=== PATIENT | female | born 1980 | race Two or more races ===

== ENCOUNTER 2024-03-07 20:38 | Emergency (ER) | payer OTHER ==
[~2024-03-07] VITALS: Ht 149.9 cm; Wt 63.0 kg
[2024-03-07] MEDS ORDERED: ACETAMINOPHEN 500 MG TABLET ONE (22:30)
[2024-03-07] MEDS ORDERED: LORAZEPAM 1 MG TABLET ONE (22:30)
[2024-03-07] MEDS: LORAZEPAM 0.5 MG TABLET PO ONE (22:33)
[2024-03-07] MEDS: ACETAMINOPHEN 500 MG TABLET PO ONE (22:33)
[2024-03-07] MEDS ORDERED: hydrOXYzine HCL 25 MG TABLET ONE (23:42)
[2024-03-07] MEDS ORDERED: HYDROXYZINE HCL 25 MG/ML VIAL IM ONE (23:45)
[2024-03-07] MEDS: hydrOXYzine HCL 25 MG TABLET PO ONE (23:50)
[2024-03-08] MEDS ORDERED: HYDR-501 PO (01:42)
[2024-03-08 01:53] VITALS: BP 136/95; O2SAT 97
== END 2024-03-08 01:54 | disposition home or self-care (01) ==
LOC: ER 22:02
DX: F41.0 Panic disorder [episodic paroxysmal anxiety] (principal); R00.2 Palpitations; R51.9 Headache, unspecified; R42 Dizziness and giddiness; R07.9 Chest pain, unspecified; R03.0 Elevated blood-pressure reading, without diagnosis of hypertension
CPT/HCPCS: 71045; A4606; A4663; A9150